=== PATIENT | male | born 1950 | race Caucasian/White ===

== ENCOUNTER → 2016-10-30 | Outpatient (CLI) | payer OTHER, MEDICARE ==
[~2016-10-30] MED LIST: ASCO1CAP3 PO; ASPEC81 PO; ASPI81TA28 PO; ATOR-24 PO; CEPH-571 PO; CEPH500C2 PO; CLB200 PO; CRANPOW PO; HYDR-3983 PO; OMEGCAP2 PO; ONDA8TAB6 PO; OXYB5TAB74 PO; OXYC7.5T62 PO; PANT40TA PO; PHEN-775 PO; RXC5 PO; TAMS0.4C38 PO; [UNRECOGNIZED DRUG - OTHER] PO; [UNRECOGNIZED DRUG - OTHER] PO
== END | disposition home or self-care (01) ==
LOC: C.CPL 15:27
PROVIDERS: ATTEND Orthopaedic Surgery Sports Medicine
DX: Z01.810 Encounter for preprocedural cardiovascular examination (principal)

== ENCOUNTER 2017-03-18 05:19 | Inpatient (IN) | payer OTHER, MEDICARE ==
[2017-02-12 14:40] VITALS: BMI 29.0
[2017-02-12 15:08] LABS: BUN/CREATININE RATIO 13.1 (10-20); CALCIUM 9.5 mg/dl (8.5-10.1); CREATININE 1.2 mg/dl (0.60-1.40); POTASSIUM 4.2 mmol/L (3.5-5.1)
--- NOTE | 2017-02-12 15:11 | PAT Medication Instructions ---
Service Date February 12, 2017. Current Home Medication List Ascorbic Acid (Vitamin C), 500 MG PO QAM Aspirin (Aspirin Ec), 81 MG PO QAM Atorvastatin (Lipitor), 40 MG PO QAM Lakeside-3 Fatty Acids (Fish Oil), 1 TAB PO QAM Pantoprazole (Protonix), 40 MG PO QAM Medication Instructions For Your Scheduled Surgery - Hold the following medications 2 weeks prior to surgery: Lakeside-3 Fatty Acids (Fish Oil), 1 TAB PO QAM - Hold the following medications the morning of surgery: Ascorbic Acid (Vitamin C), 500 MG PO QAM - Take the following medications the morning of surgery with a sip of water: Pantoprazole (Protonix), 40 MG PO QAM Atorvastatin (Lipitor), 40 MG PO QAM Aspirin (Aspirin Ec), 81 MG PO QAM If you have any questions please call us at [phone] (Palak Sosa PA-C) or [phone] or [phone]
[2017-02-12 15:28] LABS: BASO % 0.4 %; BASO ABS # 0.03 K/uL (0-0.2); COMPLETE YES; EOS % 1.6 %; HEMATOCRIT 44.9 % (42-52); IG% 0.3 %; LYMPH % 21.8 %; LYMPH ABS # 1.54 K/uL (1.2-3.4); MEAN CELL VOLUME 87.9 fL (80-100); MEAN CORPUSCULAR HEMOGLOBIN 28.6 pg (25-34); MEAN CORPUSCULAR HGB CONC 32.5 g/dl (32-36); MEAN PLATELET VOLUME 10.4 fL (7.4-10.4); MONO % 7.1 %; NEUT % 68.8 %; PLATELET COUNT 312 K/uL (130-400); RED BLOOD COUNT 5.11 M/uL (4.7-6.1); WHITE BLOOD COUNT 7.08 K/uL (4.8-10.8)
[2017-02-12 15:29] LABS: URINE APPEARANCE CLEAR (CLEAR); URINE BILIRUBIN NEG (NEG); URINE COLOR YELLOW; URINE EPITHELIAL CELL AUTO 0-5 /lpf (0-5); URINE NITRITE NEG (NEG); URINE PH 5.5 (4.5-7.5); URINE SPECIFIC GRAVITY 1.015 (1.000-1.030); UROBILINOGEN NEG (NEG)
--- NOTE | 2017-02-12 15:33 | DIAGNOSTIC IMAGING REPORT ---
TWO VIEW CHEST CLINICAL HISTORY: Preoperative examination. FINDINGS: PA and lateral chest radiographs are obtained. No prior studies are available for comparison at the time of dictation. The cardiomediastinal silhouette is unremarkable. Scattered calcified granulomas are identified. The lungs and pleural spaces are otherwise clear. There is no pneumothorax. The skeletal structures are osteopenic. Degenerative change is noted throughout the thoracic spine. There is atherosclerotic calcification of the carotid bulbs. IMPRESSION: No active disease in the chest. Electronically signed by: Barry Loomis M.D. 02/12/2017 3:32 PM Dictated Date/Time: 02/12/2017 3:31 PM
[2017-02-12 15:35] LABS: PROTHROMBIN TIME (PATIENT) 10.4 SECONDS (9.0-12.0)
[2017-02-12 15:40] LABS: MANUAL MICROSCOPIC REQUIRED? NO; REVIEW REQ? NO
[2017-02-13 07:21] LABS: ESTIMATED AVERAGE GLUCOSE 137 mg/dl; HA1C FLAG Normal (Normal)
--- NOTE | 2017-03-17 19:01 | HISTORY & PHYSICAL EXAMINATION ---
DATE OF ADMISSION: 03/18/2017 CHIEF COMPLAINT: Chronic left knee pain. HISTORY OF PRESENT ILLNESS: This is a 66-year-old male patient of Dr. Pineda'dallas complaining of chronic left knee pain, longstanding, now progressively getting worse. The patient has been diagnosed with end-stage osteoarthritis per clinical and radiographic exam. The patient has failed conservative treatment including anti-inflammatories and the use of bracing. The patient has increased pain with weightbearing activities and his pain does interfere with his activities of daily living. PAST MEDICAL HISTORY: Hypercholesterolemia, rheumatoid arthritis, acid reflux, hiatal hernia. SOCIAL HISTORY: He was a lifelong smoker, quit in 1969. He is a 6 drinks per week drinker. PAST SURGICAL HISTORY: Elbow surgery. REVIEW OF SYSTEMS: The patient complains of chronic left knee pain, otherwise denies any shortness of breath, chest pain, nausea, vomiting or other joint complaints. FAMILY HISTORY: Noncontributory. MEDICATIONS: Include pantoprazole 40 mg daily, Lipitor 40 mg daily. ALLERGIES: No known drug allergies. PHYSICAL EXAMINATION: GENERAL: Well-developed, well-nourished 66-year-old male in no acute distress. He is alert and oriented x3 and pleasant. HEENT: Normocephalic, atraumatic. Extraocular motions are intact. Pupils equal and reactive to light. HEART: Regular rate and rhythm. No murmurs are appreciated. LUNGS: Clear. ABDOMEN: Soft and nontender, bowel sounds are present. EXTREMITIES: Left knee reveals a range of motion of 0-130. He has a mild effusion. He does have crepitation with passive range of motion. He has medial joint line tenderness with a valgus deformity. 5/5 strength. NEUROLOGIC: Neurovascularly, he is intact in his left lower extremity. DIAGNOSES: Left knee end-stage osteoarthritis, hypercholesterolemia, rheumatoid arthritis, osteoarthritis, acid reflux, hiatal hernia. PLAN: The patient was advised of his diagnosis. Indications, risks, benefits and post op course have all been reviewed. The patient wished to proceed with a left total knee arthroplasty. Necessary consent forms, preoperative testing and clearances will be obtained. [facility]
[2017-03-18] VITALS (9 sets, daily range): BP systolic 124–160; BP diastolic 71–105; PULSE 75–91; TEMP 36.5–37; O2SAT 94–98; Ht 175.3 cm; Wt 91.4 kg
[~2017-03-18] VITALS: Ht 175.3 cm; Wt 91.4 kg
[~2017-03-18 05:19] MED LIST changes: -ASPEC81 PO; -CEPH-571 PO; -CEPH500C2 PO; -CLB200 PO; -CRANPOW PO; -HYDR-3983 PO; -ONDA8TAB6 PO; -OXYB5TAB74 PO; -OXYC7.5T62 PO; -PHEN-775 PO; -RXC5 PO; -TAMS0.4C38 PO; -[UNRECOGNIZED DRUG - OTHER] PO; -[UNRECOGNIZED DRUG - OTHER] PO
[2017-03-18] MEDS ORDERED: METOCLOPRAMIDE HCL 10 MG TAB PO SCH (06:00)
[2017-03-18] MEDS ORDERED: GABAPENTIN 300 MG CAP PO SCH (06:00)
[2017-03-18] MEDS ORDERED: CeleBREX 200 MG CAP PO SCH (06:00)
[2017-03-18] MEDS ORDERED: LACTATED RINGER'S 1000ML IV SCH (06:00)
[2017-03-18] MEDS ORDERED: LACTATED RINGER'S 1000ML 500 ML IV ONE (06:00)
[2017-03-18] MEDS ORDERED: ROPIVACAINE 5MG/ML 30 ML 150 MG, BUPIVACAINE/EPINEPHR 0.5% MPF 30 ML, KETOROLAC TROMETH... INFIL SCH ×7 (06:00)
[2017-03-18] MEDS ORDERED: CEFAZOLIN 2000 MG/60 ML D5W 60 ML IV SCH (06:00)
[2017-03-18] MEDS ORDERED: ACETAMINOPHEN 500 MG TAB PO SCH (06:00)
[2017-03-18] MEDS ORDERED: DEXAMETHASONE 4 MG TAB PO SCH (06:00)
[2017-03-18] MEDS ORDERED: LACTATED RINGER'S 1000ML 1,000 ML IV SCH (06:00)
[2017-03-18] MEDS ORDERED: FAMOTIDINE 20 MG TAB PO SCH (06:00)
[2017-03-18] MEDS: TRANEXAMIC ACID INJ 1,000 MG in SODIUM CHLORIDE 0.9% 100ML 100 ML IV SCH ×2 (06:19→06:30)
[2017-03-18] MEDS ORDERED: BUPIVACAINE 0.5 % 5 MG/1 ML PF 10ML VIAL ONE (06:28)
[2017-03-18] MEDS ORDERED: BUPIVACAINE 0.25% 30 ML VIAL ONE (06:28)
[2017-03-18] MEDS ORDERED: MIDAZOLAM HCL 1 MG/ML 2ML VIAL ONE (06:48)
[2017-03-18] MEDS ORDERED: LIDOCAINE HCL 2% 2 ML VIAL (20MG/ML) ONE (06:48)
[2017-03-18] MEDS ORDERED: PROPOFOL IV EMULSION 10 MG/ML 20 ML VIAL IV ONE (06:48)
[2017-03-18] MEDS ORDERED: ORTHO JOINT ANESTHETIC ONE (07:06)
[2017-03-18] MEDS ORDERED: POVIDONE-IODINE OP SOLN 30 ML BTL ONE (07:06)
[2017-03-18] MEDS ORDERED: BACITRACIN 50000 UNIT VIAL ONE (07:06)
--- NOTE | 2017-03-18 07:15 | History & Physical Bridge Note ---
H&P Re-Evaluation Bridge Note: I have examined the patient, reviewed the History & Physical and in the interval since the performance of the History & Physical I have noted the following changes of clinical significance: No changes noted
[2017-03-18] MEDS ORDERED: ATROPINE SULFATE 0.1 MG/ML 5ML SYR IV PRN (08:30)
[2017-03-18] MEDS ORDERED: HYDROmorphone INJ 1 MG/ML SYR IV PRN (08:30)
[2017-03-18] MEDS ORDERED: FENTANYL CITRATE INJ 50 MCG/1 ML 2 ML VIAL IV PRN (08:30)
[2017-03-18] MEDS ORDERED: ONDANSETRON INJ 2 MG/ML 2 ML VIAL IV PRN ×2 (08:30→09:30)
[2017-03-18] MEDS ORDERED: MEPERIDINE HCL 25 MG/ML CARP IV PRN (08:30)
[2017-03-18] MEDS ORDERED: LABETALOL HCL IV 5 MG/ML 20ML IV PRN (08:30)
[2017-03-18] MEDS ORDERED: EpHEDrine SULFATE INJ 50 MG/ML AMP IV PRN (08:30)
--- NOTE | 2017-03-18 09:10 | [facility] Operative Report ---
Operative Report Operative Date Mar 18, 2017. Pre-Operative Diagnosis Left knee end stage osteoarthritis Post-Operative Diagnosis same Procedure(s) Performed left total knee replacement Surgeon Dr. Pineda Electronic Funds Transfer Coordinator Surgeon(s) Dontrell Hatch PA-C Estimated Blood Loss 10cc Findings end stage djd oa chronic acl tear varus grade 4 medial Specimens A. Left knee bone and tissue Drains 2 hemovac Anesthesia spinal regional and orhtomix Complication(s) None Disposition Recovery Room / PACU Indications end stage djd oa I attest to the content of the Intraoperative Record and any orders documented therein. Any exceptions are noted below.
[2017-03-18] MEDS ORDERED: BISACODYL 10 MG SUPP PR PRN (09:30)
[2017-03-18] MEDS ORDERED: ZOLPIDEM TARTRATE 5 MG TAB PO PRN (09:30)
[2017-03-18] MEDS ORDERED: SOD PHOSPHATE/SOD BIPHOSPHATE ENEMA 132 ML BTL PR PRN (09:30)
[2017-03-18] MEDS ORDERED: TRAMADOL HCL 50 MG TAB PO PRN (09:30)
[2017-03-18] MEDS ORDERED: MoRPHine SULFATE 2 MG/ML CARP IV PRN (09:30)
[2017-03-18] MEDS ORDERED: MAGNESIUM HYDROXIDE SUSP 30 ML UDC PO PRN (09:30)
[2017-03-18] MEDS ORDERED: MoRPHine SULFATE 4 MG/ML 1 ML CARP\\VIAL IV PRN (10:00)
--- NOTE | 2017-03-18 10:11 | DIAGNOSTIC IMAGING REPORT ---
TWO VIEWS LEFT KNEE CLINICAL HISTORY: Postoperative examination. FINDINGS: AP and crosstable lateral portable views of the left knee are obtained. A left knee arthroplasty is in near anatomic alignment. There has been undersurface remodeling of the patella. No acute fracture is seen. There are expected postoperative changes around the knee including skin clips, a surgical drain, soft tissue edema, and subcutaneous gas. IMPRESSION: Expected postoperative changes status post left knee arthroplasty. No acute fracture is seen. Electronically signed by: Barry Loomis M.D. 03/18/2017 10:09 AM Dictated Date/Time: 03/18/2017 10:09 AM
--- NOTE | 2017-03-18 10:42 | Anesthesiology Progress Note ---
Anesthesia Post Op Note Date & Time Mar 18, 2017 at 10:41 Vital Signs Pain Intensity: 0 Vital Signs Past 12 Hours Date Time Temp Pulse Resp B/P (MAP) Pulse Ox O2 Delivery O2 Flow Rate FiO2 03/18/17 10:20 77 13 128/77 96 Nasal Cannula 2 03/18/17 10:10 37.4 78 16 128/81 97 Nasal Cannula 2 03/18/17 10:00 82 12 116/78 97 Nasal Cannula 2 03/18/17 09:50 74 12 117/77 94 Nasal Cannula 2 03/18/17 09:40 81 9 131/79 92 Nasal Cannula 2 03/18/17 09:30 36.0 80 15 122/77 98 Nasal Cannula 2 03/18/17 05:38 36.9 79 18 154/105 95 Room Air Notes Mental Status: alert / awake / arousable, participated in evaluation Pt Amnestic to Procedure: Yes Nausea / Vomiting: adequately controlled Pain: adequately controlled Airway Patency, RR, SpO2: stable & adequate BP & HR: stable & adequate Hydration State: stable & adequate Neuraxial Anesthesia: was administered, sensory block is resolving Anesthetic Complications: no major complications apparent
--- NOTE | 2017-03-18 10:51 | OPERATIVE REPORT ---
DATE OF OPERATION: 03/18/2017 INDICATION FOR PROCEDURE: The patient is a 66-year-old male with chronic progressive osteoarthritis in his left knee primarily. He also has osteoarthritis in his right knee, but not as severe as the left. He failed conservative management. His x-rays demonstrate he is [id number] medial compartment with some bone loss and significant varus alignment to his knee. PREOPERATIVE DIAGNOSIS: End-stage osteoarthritis, left knee. POSTOPERATIVE DIAGNOSIS: Same. PROCEDURE: Left total knee arthroplasty. SURGEON: Dr. Pineda. METALWORKER: RENY Maynard ANESTHESIA: Spinal, regional block and Orthomix. OPERATIVE PROCEDURE: The patient taken to the operating room after a spinal anesthetic placed and a regional block placed to his left lower extremity. A pneumatic tourniquet was placed on left upper thigh. His knee exam demonstrated he had no endpoint with Luisa exam. He had some pseudolaxity medially. He had a marked varus alignment to his knee about 20 degrees of varus. He had good extension and flexion. Left lower extremity was prepped and draped in a sterile fashion. Leg was elevated, exsanguinated with an Esmarch bandage. Pneumatic tourniquet was raised to 300 mmHg. Anterior incision was made across the left knee. Skin was incised longitudinally through the skin and into the subcutaneous tissues and subcutaneous flaps were elevated. An incision was made into the medial retinaculum and extended up into the mid third of the quadriceps tendon and extended down to the medial tibial tubercle. Intraarticular findings demonstrate tricompartmental DJD, tricompartmental osteophytes. He had grade 4 wear on the lateral femoral condyle, medial femoral condyle, some bone loss medially chronic ACL tear. I used the [employer] Journey 2.0, total knee arthroplasty system using Visionaire MRI templating, his femur was sized for a 6 and tibia for a 4. To expose the knee, I excised the infrapatellar fat pad, I excised some of the fat pad over the anterior femur for placement of the component in that area. I released the lateral synovial bands. The patient had a fairly large plica that was resected along with some of the synovium around the patella. The femur was exposed. The PCL was released and later excised and then medial meniscus remnants and the lateral meniscus were excised. The custom femoral cutting block was pinned in position and the distal femoral cut was made. Then the 5-in-1 cutting block for the size 6 femur was used. The anterior, posterior and chamfer cuts were made. Then the knee was extended and a subperiosteal peel lateral release was performed around the patella and the patella width was measured and width was reproduced using a freehand cut technique and a 38 patellar component. The drill holes were made into the patella for the component and the excess lateral facet was beveled off to prevent any impingement. Then the tibia was subluxed and the tibial cutting block was pinned in position and the proximal tibial cut was made. We did more releases medially and posteromedially to balance the ligaments, but there was still slight asymmetric flexion, extension gap on the medial side. At this time, the tibia was exposed and we placed the tibial trial in position, externally rotated in line with the tibial tubercle, pinned in position, the punch for the stem was used. Then, the 6 femoral trial was inserted, centered and the notch cutting devices were used. The collet was placed and then we used the lamina electric hoist operator to put tension on the MCL and did a minor pie crusting in the MCL to get the appropriate ligamentous balance and then we placed a 12 poly insert in position and the ligaments were balanced in full range of motion and the patella tracked centrally. The trials were removed. The anesthetic cocktail was injected per protocol. The knee was copiously irrigated with pulsatile lavage antibiotic solution and bacitracin. The final components were then cemented with Simplex G cement. Final components were the 6 Oxinium posterior stabilized Godwin [employer] Nephew Journey 2.0 left femoral component, the 4 tibial baseplate, the 12 mm posterior stabilized high flex poly insert and the 38 patella. All excess cement was cleared and the Betadine soak was used while the cement cured. The knee was then copiously irrigated with pulsatile lavage antibiotic solution with bacitracin. The 2 drains were brought out laterally connected to a Hemovac. The quadriceps tendon and medial retinaculum were closed with interrupted [id number] #1 Vicryl sutures. Subcutaneous tissues were closed with interrupted 2-0 Vicryl sutures, skin closed with adiel. Sterile dressing was applied using Silverlon dressing and the tourniquet was let down. The patient had good capillary refill to the extremity and tolerated the procedure well. RENY Maynard was my sales assistant entertainment and media. He assisted in the surgery including assisting in patient positioning, prepping, draping, soft tissue retraction, leg positioning, and instrument management during the reconstruction and he performed the fascial, subcutaneous and skin closure and placed postoperative dressings and will participate in postop care of the patient. I attest to the content of the Intraoperative Record and any orders documented therein. Any exception s are noted below.
[2017-03-18] MEDS ORDERED: D5W AND 1/2NSS + 20MEQ KCL 1,000 ML IV SCH (11:30)
[2017-03-18] MEDS ORDERED: GLUCOSE 40% GEL 15 GM TUBE PO PRN (11:45)
[2017-03-18] MEDS ORDERED: GLUCAGON FOR INJ 1 MG VIAL SQ PRN (11:45)
[2017-03-18] MEDS ORDERED: GLUCOSE 10 TABS/TUBE PO PRN (11:45)
[2017-03-18] MEDS ORDERED: DEXTROSE 50% 50 ML SYR IV PRN (11:45)
--- NOTE | 2017-03-18 11:48 | Medical Consult ---
Consultation Date of Consultation: Mar 18, 2017. Attending Physician: Joel Pineda M.D. Reason for Consultation: Medical management History of Present Illness This is a 66 y/o male with a history of HLD and Hayes's esophagus who presents s/p left TKA with Dr. Pineda on 03/18 for medical management. Patient reports feeling well postoperatively. He states that he is still numb from his thighs down but is regaining movement in his lower extremities. He denies any pain currently. The patient has not eaten, urinated, passed gas, or had a bowel movement yet postoperatively. The patient denies fevers, chills, sweats, chest pain, palpitations, claudication, cough, wheezing, shortness of breath, nausea, vomiting, abdominal pain, dysuria, hematuria, urinary retention, paralysis, weakness. 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) Allergies Coded Allergies: No Known Allergies (Verified , 03/18/17) Current Inpatient Medications Current Inpatient Medications Medications (Trade) Dose Ordered Sig/David Route Start Time Stop Time Status Last Admin Dose Admin Lactated Ringer's 1,000 ml @ 60 mls/hr [id number] IV 03/18/17 06:00 03/18/17 22:39 Cefazolin Sodium 60 ml @ 100 mls/hr PREOP IV 03/18/17 06:00 03/18/17 18:00 03/18/17 07:31 100 MLS/HR Acetaminophen (Tylenol Tab) 1,000 mg PREOP PO 03/18/17 06:00 03/18/17 18:00 03/18/17 06:19 1,000 MG Celecoxib (CeleBREX CAP) 200 mg PREOP PO 03/18/17 06:00 03/18/17 18:00 03/18/17 06:19 200 MG Dexamethasone (Decadron Tab) 8 mg PREOP PO 03/18/17 06:00 03/18/17 18:00 03/18/17 06:20 8 MG Famotidine (Pepcid Tab) 20 mg PREOP PO 03/18/17 06:00 03/18/17 18:00 03/18/17 06:19 20 MG Gabapentin (Neurontin Cap) 300 mg PREOP PO 03/18/17 06:00 03/18/17 18:00 03/18/17 06:20 300 MG Metoclopramide HCl (Reglan Tab) 10 mg PREOP PO 03/18/17 06:00 03/18/17 18:00 03/18/17 06:20 10 MG Tranexamic Acid 1000 mg/Sodium Chloride 110 ml @ 660 mls/hr TODAY@06,0630 IV 03/18/17 06:00 03/18/17 18:00 03/18/17 06:19 660 MLS/HR Lactated Ringer's 1,000 ml @ 15 mls/hr Q24H IV 03/18/17 06:00 03/19/17 05:59 03/18/17 06:20 15 MLS/HR Fentanyl Citrate (Fentanyl Inj) 50 mcg Q5M PRN IV 03/18/17 08:30 03/18/17 14:30 Hydromorphone HCl (Dilaudid Inj) 0.5 mg Q5M PRN IV 03/18/17 08:30 03/18/17 14:30 Meperidine HCl (Demerol Inj) 25 mg Q5M PRN IV 03/18/17 08:30 03/18/17 14:30 Ondansetron HCl (Zofran Inj) 4 mg ONE PRN IV 03/18/17 08:30 03/18/17 14:30 Labetalol HCl (Normodyne IV) 5 mg Q5M PRN IV 03/18/17 08:30 03/18/17 14:30 Ephedrine Sulfate (EpHEDrine SULFATE INJ) 5 mg Q5M PRN IV 03/18/17 08:30 03/18/17 14:30 Atropine Sulfate (Atropine Sulfate 0.1MG/Ml Inj) 0.5 mg Q1M PRN IV 03/18/17 08:30 03/18/17 14:30 Atorvastatin Calcium (Lipitor Tab) 40 mg QAM PO 03/19/17 09:00 04/18/17 08:59 Ascorbic Acid (Vitamin C Tab) 500 mg QAM PO 03/19/17 09:00 04/18/17 08:59 Potassium Chloride/Dextrose/ Sod Cl 1,000 ml @ 100 mls/hr Q10H IV 03/18/17 11:30 03/19/17 11:29 Cefazolin Sodium 2000 mg/Dextrose 60 ml @ 100 mls/hr Q8H IV 03/18/17 16:00 03/19/17 00:35 Celecoxib (CeleBREX CAP) 200 mg BID PO 03/18/17 21:00 04/17/17 20:59 Oxycodone HCl (Roxicodone Immediate Rel Tab) 1 TABLET FOR PAIN RATING... Q4H PRN PO 03/18/17 09:30 04/01/17 09:29 Morphine Sulfate (MoRPHine SULFATE INJ) 2 mg Q2H PRN IV 03/18/17 09:30 04/01/17 09:29 Acetaminophen (Tylenol Tab) 1,000 mg Q8H PO 03/18/17 22:00 04/17/17 21:59 Magnesium Hydroxide (Milk Of Magnesia Susp) 30 ml Q6H PRN PO 03/18/17 09:30 04/17/17 09:29 Bisacodyl (Dulcolax Supp) 10 mg DAILY PRN ME 03/18/17 09:30 04/17/17 09:29 Sodium Biphosphate/ Sodium Phosphate (Fleet Enema) 132 ml DAILY PRN ME 03/18/17 09:30 04/17/17 09:29 Docusate Sodium (coLACE CAP) 100 mg BID PO 03/18/17 21:00 04/17/17 20:59 Diphenhydramine HCl (Benadryl Cap) 25 mg Q8H PRN PO 03/18/17 09:30 04/17/17 09:29 Zolpidem Tartrate (Ambien Tab) 5 mg HSZ PRN PO 03/18/17 09:30 04/17/17 09:29 Multivitamins (Multivitamin Tab) 1 tab QAM PO 03/19/17 09:00 04/18/17 08:59 Ondansetron HCl (Zofran Inj) 4 mg Q6H PRN IV 03/18/17 09:30 04/17/17 09:29 Pantoprazole Sodium (Protonix Tab) 40 mg QAM PO 03/19/17 09:00 04/18/17 08:59 Tramadol HCl (Ultram Tab) 1 tablet for pain rating... Q4H PRN PO 03/18/17 09:30 04/17/17 09:29 Aspirin (Ecotrin Tab) 81 mg BID PO 03/18/17 21:00 04/17/17 20:59 Morphine Sulfate (MoRPHine SULFATE INJ) 4 mg Q2H PRN IV 03/18/17 10:00 04/01/17 09:59 Review of Systems See HPI for pertinent positives and negatives. All other systems reviewed and negative. Physical Exam Date Time Temp Pulse Resp B/P (MAP) Pulse Ox O2 Delivery O2 Flow Rate FiO2 03/18/17 11:35 81 16 155/81 (105) 96 Nasal Cannula 2.0 03/18/17 11:00 80 16 160/81 (107) 98 Nasal Cannula 2.0 03/18/17 10:30 37.0 79 18 137/73 (94) 95 Nasal Cannula 2.0 03/18/17 10:20 77 13 128/77 96 Nasal Cannula 2 03/18/17 10:10 37.4 78 16 128/81 97 Nasal Cannula 2 03/18/17 10:00 82 12 116/78 97 Nasal Cannula 2 03/18/17 09:50 74 12 117/77 94 Nasal Cannula 2 03/18/17 09:40 81 9 131/79 92 Nasal Cannula 2 03/18/17 09:30 36.0 80 15 122/77 98 Nasal Cannula 2 03/18/17 05:38 36.9 79 18 154/105 95 Room Air General appearance: Well-developed, well-nourished, no apparent distress Head: +Head bobbing. Pt states he has had this "involuntary twitch" since he was a teenager. Normocephalic, atraumatic Eyes: Normal inspection, PERRL, EOMI ENT: Normal ENT inspection, hearing grossly normal, pharynx normal Neck: Supple, no JVD, trachea midline Respiratory/Chest: Lungs clear to auscultation, normal breath sounds, no respiratory distress Cardiovascular: Regular rate & rhythm, no gallop, no murmur Abdomen/GI: Normal bowel sounds, non-tender, soft Extremities/Musculoskeletal: +LLE wrapped in janet bandage. Normal inspection, no calf tenderness, no pedal edema Neurological/Psych: Alert, normal mood/affect, oriented x 3 Skin: Normal color, warm/dry, no rash Assessment & Plan 66 y/o male with a history of HLD and Hayes's esophagus who presents s/p left TKA with Dr. Pineda on 03/18 for medical management. -Pain management, DVT prophylaxis, and PT/OT as per primary team -POD #0 Pre-diabetes--pre op labs on 02/12/17 show HgbA1c of 6.4 -Insulin sliding scale -Check BSGs q ac and qhs -Discussed with patient lifestyle modifications for after discharge and to follow up on this with his PCP HLD -Continue atorvastatin 40 mg PO qd Hayes's esophagus -Continue pantoprazole 40 mg PO qd Code Status -Level I, FULL RESUSCITATION STATUS Thank you for this consultation. We will continue to follow. Additional Copies To Mary Lou Colon D.O. Assessment and Plan Attending Addendum: I have physically seen and examined this patient, directed their medical care, supervised the Physician Director Of Diagnostic Imaging's activity, and agree with the H&P as noted above, with the following changes: NONE.
[2017-03-18] MEDS: INSULIN ASPART 100 UNITS/ML 3 ML PEN SC SCH ×3 (12:00→21:00)
[2017-03-18 12:39] LABS: BASO % 0.1 %; BASO ABS # 0.01 K/uL (0-0.2); COMPLETE YES; EOS % 0.1 %; HEMATOCRIT 41.3 % (42-52); IG% 0.1 %; LYMPH % 5.7 %; LYMPH ABS # 0.49 K/uL (1.2-3.4); MEAN CELL VOLUME 87.9 fL (80-100); MEAN CORPUSCULAR HEMOGLOBIN 30.2 pg (25-34); MEAN CORPUSCULAR HGB CONC 34.4 g/dl (32-36); MEAN PLATELET VOLUME 10.9 fL (7.4-10.4); MONO % 0.6 %; NEUT % 93.4 %; PLATELET COUNT 256 K/uL (130-400); WHITE BLOOD COUNT 8.54 K/uL (4.8-10.8)
[2017-03-18 13:05] LABS: BUN/CREATININE RATIO 14.1 (10-20); CALCIUM 8.5 mg/dl (8.5-10.1); CREATININE 1.1 mg/dl (0.60-1.40); POTASSIUM 4.5 mmol/L (3.5-5.1)
[2017-03-18] MEDS: CEFAZOLIN IV 2,000 MG in DEXTROSE 5% 50ML 50 ML IV SCH ×2 (16:08→23:36)
[2017-03-18] MEDS: SODIUM CHLORIDE 0.9% 1000ML 1,000 ML IV SCH (16:08)
[2017-03-18] MEDS: DOCUSATE SODIUM 100 MG CAP PO SCH (21:00)
[2017-03-18] MEDS: CeleBREX 200 MG CAP PO SCH (21:00)
[2017-03-18] MEDS: ASPIRIN 81 MG ECTAB PO SCH (21:00)
[2017-03-18] MEDS: ACETAMINOPHEN 500 MG TAB PO SCH (21:01)
[2017-03-19] MEDS: SODIUM CHLORIDE 0.9% 1000ML 1,000 ML IV SCH (01:17)
[2017-03-19 03:36] VITALS: BP 129/72; PULSE 79; TEMP 36.7; O2SAT 97
[2017-03-19 05:36] LABS: HEMATOCRIT 34.7 % (42-52); MEAN CELL VOLUME 87.2 fL (80-100); MEAN CORPUSCULAR HEMOGLOBIN 28.9 pg (25-34); MEAN CORPUSCULAR HGB CONC 33.1 g/dl (32-36); MEAN PLATELET VOLUME 10.6 fL (7.4-10.4); PLATELET COUNT 246 K/uL (130-400); RED BLOOD COUNT 3.98 M/uL (4.7-6.1); WHITE BLOOD COUNT 15.46 K/uL (4.8-10.8)
[2017-03-19 06:09] LABS: BUN/CREATININE RATIO 18.1 (10-20); CALCIUM 8.1 mg/dl (8.5-10.1); CREATININE 1.1 mg/dl (0.60-1.40); POTASSIUM 4.7 mmol/L (3.5-5.1)
[2017-03-19] MEDS: ACETAMINOPHEN 500 MG TAB PO SCH ×3 (06:10→21:28)
[2017-03-19 07:16] VITALS: BP 118/68; PULSE 68; TEMP 36.6; O2SAT 96
--- NOTE | 2017-03-19 07:58 | Hospitalist Progress Note ---
Hospitalist Progress Note Date of Service Mar 19, 2017. (Jacqueline Lopez PA-C) Subjective Pt evaluation today including: conversation w/ patient, physical exam, chart review, lab review, review of studies Pain: None PO Intake: Good Voiding: no voiding problems The patient was seen and examined this morning. Pt reports he feels "really good , great actually" today. He has no pain currently, took a pain med about 1.5 hrs ago. He hasn't worked with PT yet, but plans to later today. He ate breakfast without difficulty, no nausea, vomiting, and is passing gas. No BM yet. No numbness or tingling into the right LE. Denies any other acute complaints. Discussion was held regarding taking tylenol around the clock for a few days to keep ahead of his pain, and only using oxycodone for breakthrough pain. We also discussed diet and exercise for elevated HgbA1C and prediabetes. Pt does have family hx of DM, and reassures me he will start eating much healthier and that this wont be any trouble. All his questions and concerns were answered. Additional Comments: ROS: 6 point ROS reviewed and otherwise negative. (Jacqueline Lopez, JALEEL) Objective Vital Signs Date Time Temp Pulse Resp B/P (MAP) Pulse Ox O2 Delivery O2 Flow Rate FiO2 03/19/17 07:16 36.6 68 18 118/68 (85) 96 Room Air 03/19/17 03:36 36.7 79 15 129/72 (91) 97 Nasal Cannula 2.0 03/18/17 23:00 36.5 89 16 140/71 (94) 97 Nasal Cannula 2.0 03/18/17 20:00 Room Air 03/18/17 19:48 36.8 79 16 124/76 (92) 98 Nasal Cannula 2.0 03/18/17 16:00 Nasal Cannula 2.0 03/18/17 15:04 36.7 85 16 143/79 (100) 97 Nasal Cannula 2.0 03/18/17 13:30 91 16 154/81 (105) 94 Nasal Cannula 2.0 03/18/17 12:30 75 16 158/80 (106) 98 Nasal Cannula 2.0 03/18/17 11:35 81 16 155/81 (105) 96 Nasal Cannula 2.0 03/18/17 11:00 80 16 160/81 (107) 98 Nasal Cannula 2.0 03/18/17 10:30 95 Nasal Cannula 2.0 03/18/17 10:30 95 Nasal Cannula 2.0 03/18/17 10:30 37.0 79 18 137/73 (94) 95 Nasal Cannula 2.0 03/18/17 10:20 77 13 128/77 96 Nasal Cannula 2 03/18/17 10:10 37.4 78 16 128/81 97 Nasal Cannula 2 03/18/17 10:00 82 12 116/78 97 Nasal Cannula 2 03/18/17 09:50 74 12 117/77 94 Nasal Cannula 2 03/18/17 09:40 81 9 131/79 92 Nasal Cannula 2 03/18/17 09:30 36.0 80 15 122/77 98 Nasal Cannula 2 (Jacqueline Lopez PA-C) Physical Exam General Appearance: WD/WN, no apparent distress Eyes: PERRL, EOMI ENT: hearing grossly normal, pharynx normal Neck: supple, no JVD Respiratory/Chest: chest non-tender, lungs clear, no respiratory distress, no accessory muscle use Cardiovascular: regular rate, rhythm, no JVD, + systolic murmur (grade II/V ) Abdomen: non tender, soft, no organomegaly Extremities: non-tender, no pedal edema, no calf tenderness Neurologic/Psychiatric: 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 II-XII nml as tested, no motor/sensory deficits, alert, oriented x 3 Skin: normal color, warm/dry (Jacqueline Lopez PA-C) Laboratory Results Last 24 Hours Test 03/18/17 12:02 03/18/17 12:25 03/18/17 17:08 03/18/17 20:26 Bedside Glucose 158 mg/dl 152 mg/dl 146 mg/dl White Blood Count 8.54 K/uL Red Blood Count 4.70 M/uL Hemoglobin 14.2 g/dL Hematocrit 41.3 % Mean Corpuscular Volume 87.9 fL Mean Corpuscular Hemoglobin 30.2 pg Mean Corpuscular Hemoglobin Concent 34.4 g/dl Platelet Count 256 K/uL Mean Platelet Volume 10.9 fL Neutrophils (%) (Auto) 93.4 % Lymphocytes (%) (Auto) 5.7 % Monocytes (%) (Auto) 0.6 % Eosinophils (%) (Auto) 0.1 % Basophils (%) (Auto) 0.1 % Neutrophils # (Auto) 7.97 K/uL Lymphocytes # (Auto) 0.49 K/uL Monocytes # (Auto) 0.05 K/uL Eosinophils # (Auto) 0.01 K/uL Basophils # (Auto) 0.01 K/uL RDW Standard Deviation 45.9 fL RDW Coefficient of Variation 14.3 % Immature Granulocyte % (Auto) 0.1 % Immature Granulocyte # (Auto) 0.01 K/uL Sodium Level 141 mmol/L Potassium Level 4.5 mmol/L Chloride Level 108 mmol/L Carbon Dioxide Level 25 mmol/L Anion Gap 8.0 mmol/L Blood Urea Nitrogen 16 mg/dl Creatinine 1.10 mg/dl Est Creatinine Clear Calc Drug Dose 71.8 ml/min Estimated GFR () 79.5 Estimated GFR (Non- 68.6 BUN/Creatinine Ratio 14.1 Random Glucose 155 mg/dl Calcium Level 8.5 mg/dl Test 03/19/17 04:55 White Blood Count 15.46 K/uL Red Blood Count 3.98 M/uL Hemoglobin 11.5 g/dL Hematocrit 34.7 % Mean Corpuscular Volume 87.2 fL Mean Corpuscular Hemoglobin 28.9 pg Mean Corpuscular Hemoglobin Concent 33.1 g/dl RDW Standard Deviation 45.4 fL RDW Coefficient of Variation 14.1 % Platelet Count 246 K/uL Mean Platelet Volume 10.6 fL Sodium Level 143 mmol/L Potassium Level 4.7 mmol/L Chloride Level 109 mmol/L Carbon Dioxide Level 26 mmol/L Anion Gap 8.0 mmol/L Blood Urea Nitrogen 20 mg/dl Creatinine 1.10 mg/dl Est Creatinine Clear Calc Drug Dose 71.8 ml/min Estimated GFR () 79.5 Estimated GFR (Non- 68.6 BUN/Creatinine Ratio 18.1 Random Glucose 119 mg/dl Calcium Level 8.1 mg/dl (Jacqueline Lopez PA-C) Assessment and Plan 66 y/o male with a history of HLD and Hayes's esophagus who presents s/p left TKA with Dr. Pineda on 03/18 for medical management. - Pain management, DVT prophylaxis, and PT/OT as per primary team - POD #1 - Pain well controlled Pre-diabetes--pre op labs on 02/12/17 show HgbA1c of 6.4 -Insulin sliding scale with accuchecks achs -Discussion held at beside regarding diet and exercise, pt plans to do this. Follow up on this with his PCP and have repeat Hbg A1C in 3 months. HLD -Continue atorvastatin 40 mg PO qd Hayes's esophagus -Continue pantoprazole 40 mg PO qd Code Status: FULL CODE Disposition: From home, outpatient PT planned, discharge tomorrow per primary service (Jacqueline Lopez, JALEEL) Reviewed: Pt Seen/Exam by Me (Inna Delgado DO) History Pt is doing well post-op. Pain is manageable. No SOB/chest pain. Tolerating diet without issue. Agree with HPI/ROS as noted. (Inna Delgado DO) General Appearance: WD/WN, no apparent distress Respiratory: normal breath sounds, no respiratory distress Cardiovascular: normal peripheral pulses, regular rate, rhythm Gastrointestinal: non tender, soft Extremities: non-tender, no pedal edema Neurologic/Psychiatric: alert, normal mood/affect Skin Characteristics: normal color, warm/dry (Inna Delgado DO) Assessment/Plan Agree with plan as outlined above Doing well s/p TKA pre-DM, monitor Hb stable (Inna Delgado DO)
[2017-03-19] MEDS: INSULIN ASPART 100 UNITS/ML 3 ML PEN SC SCH ×4 (08:00→21:00)
[2017-03-19] MEDS: ATORVASTATIN 20 MG TAB PO SCH (08:40)
[2017-03-19] MEDS: DOCUSATE SODIUM 100 MG CAP PO SCH ×2 (08:40→21:00)
[2017-03-19] MEDS: ASPIRIN 81 MG ECTAB PO SCH ×2 (08:40→21:00)
[2017-03-19] MEDS: PANTOprazole SOD 40 MG TAB PO SCH (08:40)
[2017-03-19] MEDS: CeleBREX 200 MG CAP PO SCH ×2 (08:40→21:01)
[2017-03-19] MEDS: MULTIVITAMIN TAB PO SCH (08:40)
[2017-03-19] MEDS: ASCORBIC ACID 500 MG TAB PO SCH (08:40)
[2017-03-19] MEDS: OXYCODONE HCL IR 5 MG TAB (IMMEDIATE RELEASE) PO PRN ×3 (08:41→23:22)
--- NOTE | 2017-03-19 08:53 | Orthopedic Progress Note ---
Orthopedic Progress Note Date of Service Mar 19, 2017. Subjective Post OP Day: 1 Reports: pain controlled w PO medications, Denies: feeling well, complaints, chest pain, SOB, nausea / vomiting, light headedness, calf pain Objective calves soft nontender, N/V intact, capillary refill less than 2 sec., dressing C /D/I, A&O x3, toes mobile Date Time Temp Pulse Resp B/P (MAP) Pulse Ox O2 Delivery O2 Flow Rate FiO2 03/19/17 08:30 Room Air 03/19/17 07:16 36.6 68 18 118/68 (85) 96 Room Air 03/19/17 03:36 36.7 79 15 129/72 (91) 97 Nasal Cannula 2.0 03/18/17 23:00 36.5 89 16 140/71 (94) 97 Nasal Cannula 2.0 03/18/17 20:00 Room Air 03/18/17 19:48 36.8 79 16 124/76 (92) 98 Nasal Cannula 2.0 03/18/17 16:00 Nasal Cannula 2.0 03/18/17 15:04 36.7 85 16 143/79 (100) 97 Nasal Cannula 2.0 03/18/17 13:30 91 16 154/81 (105) 94 Nasal Cannula 2.0 03/18/17 12:30 75 16 158/80 (106) 98 Nasal Cannula 2.0 03/18/17 11:35 81 16 155/81 (105) 96 Nasal Cannula 2.0 03/18/17 11:00 80 16 160/81 (107) 98 Nasal Cannula 2.0 03/18/17 10:30 95 Nasal Cannula 2.0 03/18/17 10:30 95 Nasal Cannula 2.0 03/18/17 10:30 37.0 79 18 137/73 (94) 95 Nasal Cannula 2.0 03/18/17 10:20 77 13 128/77 96 Nasal Cannula 2 03/18/17 10:10 37.4 78 16 128/81 97 Nasal Cannula 2 03/18/17 10:00 82 12 116/78 97 Nasal Cannula 2 03/18/17 09:50 74 12 117/77 94 Nasal Cannula 2 03/18/17 09:40 81 9 131/79 92 Nasal Cannula 2 03/18/17 09:30 36.0 80 15 122/77 98 Nasal Cannula 2 Laboratory Results 24 Hours: Test 03/18/17 12:25 03/19/17 04:55 White Blood Count 8.54 K/uL Red Blood Count 4.70 M/uL Hemoglobin 14.2 g/dL 11.5 g/dL Hematocrit 41.3 % 34.7 % Mean Corpuscular Volume 87.9 fL Mean Corpuscular Hemoglobin 30.2 pg Mean Corpuscular Hemoglobin Concent 34.4 g/dl Platelet Count 256 K/uL Mean Platelet Volume 10.9 fL Neutrophils (%) (Auto) 93.4 % Lymphocytes (%) (Auto) 5.7 % Monocytes (%) (Auto) 0.6 % Eosinophils (%) (Auto) 0.1 % Basophils (%) (Auto) 0.1 % Neutrophils # (Auto) 7.97 K/uL Lymphocytes # (Auto) 0.49 K/uL Monocytes # (Auto) 0.05 K/uL Eosinophils # (Auto) 0.01 K/uL Basophils # (Auto) 0.01 K/uL Assessment & Plan Assessment: POD #1, Left TKA Plan: PT/ OT DVT proph- ASA D/C planning- Home w OPPT As per medicine. Inhouse Planning Pain Management: Celebrex, Ultram, Morphine, PO Tylenol, Oxy IR DVT Prophylaxis: TEDs, SCDs, ASA Discharge Planning Discharge Planning: home with oppt Pain Management: Celebrex, PO Tylenol, Oxy IR DVT Prophylaxis: TEDs, ASA Therapy: Physical Therapy, Occupational Therapy
[2017-03-19 10:51] VITALS: BP 148/73; PULSE 77; TEMP 36.6; O2SAT 100
[2017-03-19 15:11] VITALS: BP 132/68; PULSE 71; TEMP 36.9; O2SAT 94
[2017-03-19 22:45] VITALS: BP 119/64; PULSE 63; TEMP 36.7; O2SAT 98
[2017-03-20] MEDS: ACETAMINOPHEN 500 MG TAB PO SCH ×2 (05:26→13:50)
[2017-03-20 06:08] LABS: HEMATOCRIT 32.8 % (42-52); MEAN CELL VOLUME 88.6 fL (80-100); MEAN CORPUSCULAR HGB CONC 33.8 g/dl (32-36); MEAN PLATELET VOLUME 10.9 fL (7.4-10.4); PLATELET COUNT 236 K/uL (130-400); WHITE BLOOD COUNT 8.51 K/uL (4.8-10.8)
[2017-03-20 06:41] LABS: CREATININE 1.1 mg/dl (0.60-1.40)
[2017-03-20 06:42] LABS: CALCIUM 8.2 mg/dl (8.5-10.1); POTASSIUM 4.4 mmol/L (3.5-5.1)
[2017-03-20 07:22] VITALS: BP 133/75; PULSE 72; TEMP 37.1; O2SAT 91
--- NOTE | 2017-03-20 08:00 | Hospitalist Progress Note ---
Hospitalist Progress Note Date of Service Mar 20, 2017. Subjective Pt evaluation today including: conversation w/ patient, physical exam, chart review, lab review, review of inpatient medication list Pain: None PO Intake: Tolerating PO diet Voiding: no voiding problems Patient reports feeling well. He did have an episode of dizziness and sweating this morning. He states that he had been bent over and straining and then quickly changed to standing position when he then felt dizzy and sweaty. This made him somewhat anxious and short of breath. He sat down and his symptoms immediately began to resolve. He also reports passing a lot of gas which also helped to further relieve his symptoms. These symptoms have now completely resolved. He denied any changes in vision, chest pain, nausea, vomiting, numbness or tingling during this episode. He reports that his knee is "feeling great." He is eating and urinating without difficulties. He has not had a bowel movement yet. The patient denies fevers, chills, chest pain, palpitations , claudication, cough, wheezing, nausea, vomiting, abdominal pain, dysuria, hematuria, urinary retention, paralysis, weakness, numbness and tingling. Additional Comments: See HPI for pertinent positives and negatives. All other systems reviewed and negative. Objective Vital Signs Date Time Temp Pulse Resp B/P (MAP) Pulse Ox O2 Delivery O2 Flow Rate FiO2 03/20/17 07:22 37.1 72 18 133/75 (94) 91 Room Air 03/19/17 23:45 Room Air 03/19/17 22:45 36.7 63 18 119/64 (82) 98 Room Air 03/19/17 15:32 Room Air 03/19/17 15:11 36.9 71 14 132/68 (89) 94 Room Air 03/19/17 10:51 36.6 77 16 148/73 (98) 100 Room Air 03/19/17 08:30 Room Air Physical Exam Notes: General appearance: Well-developed, well-nourished, no apparent distress Head: +Head bobbing. Pt states he has had this "involuntary twitch" since he was a teenager. Normocephalic, atraumatic Eyes: Normal inspection, PERRL, EOMI ENT: Normal ENT inspection, hearing grossly normal, pharynx normal Neck: Supple, no JVD, trachea midline Respiratory/Chest: Lungs clear to auscultation, normal breath sounds, no respiratory distress Cardiovascular: Regular rate & rhythm, no gallop, no murmur Abdomen/GI: Normal bowel sounds, non-tender, soft Extremities/Musculoskeletal: Normal inspection, no calf tenderness, no pedal edema Neurological/Psych: Alert, normal mood/affect, oriented x 3 Skin: Normal color, warm/dry, no rash Laboratory Results Last 24 Hours Test 03/19/17 08:03 03/19/17 12:00 03/19/17 16:50 03/19/17 20:30 Bedside Glucose 103 mg/dl 100 mg/dl 101 mg/dl 125 mg/dl Test 03/20/17 05:15 03/20/17 05:25 Sodium Level 143 mmol/L Potassium Level 4.4 mmol/L Chloride Level 108 mmol/L Carbon Dioxide Level 29 mmol/L Anion Gap 6.0 mmol/L Blood Urea Nitrogen 19 mg/dl Creatinine 1.10 mg/dl Est Creatinine Clear Calc Drug Dose 71.8 ml/min Estimated GFR () 79.5 Estimated GFR (Non- 68.6 BUN/Creatinine Ratio 17.0 Random Glucose 94 mg/dl Calcium Level 8.2 mg/dl White Blood Count 8.51 K/uL Red Blood Count 3.70 M/uL Hemoglobin 11.1 g/dL Hematocrit 32.8 % Mean Corpuscular Volume 88.6 fL Mean Corpuscular Hemoglobin 30.0 pg Mean Corpuscular Hemoglobin Concent 33.8 g/dl RDW Standard Deviation 47.5 fL RDW Coefficient of Variation 14.6 % Platelet Count 236 K/uL Mean Platelet Volume 10.9 fL Assessment and Plan 66 y/o male with a history of HLD and Hayes's esophagus who presents s/p left TKA with Dr. Pineda on 03/18 for medical management. -Pain management, DVT prophylaxis, and PT/OT as per primary team -POD #2 Pre-diabetes--pre op labs on 02/12/17 show HgbA1c of 6.4 -Insulin sliding scale -Check BSGs q ac and qhs -Discussed with patient lifestyle modifications for after discharge and to follow up on this with his PCP, repeat HgbA1c in 3 months HLD -Continue atorvastatin 40 mg PO qd Hayes's esophagus -Continue pantoprazole 40 mg PO qd Code Status -Level I, FULL RESUSCITATION STATUS Pt. is stable from a medical standpoint, we will sign off. Clear for discharge as per primary team.
--- NOTE | 2017-03-20 08:16 | Orthopedic Progress Note ---
Orthopedic Progress Note Date of Service Mar 20, 2017. Subjective Post OP Day: 2 Reports: feeling well, pain controlled w PO medications, Denies: complaints, chest pain, SOB, nausea / vomiting, light headedness, calf pain Objective calves soft nontender, N/V intact, capillary refill less than 2 sec., dressing C /D/I, A&O x3, toes mobile silverlon in tact. Date Time Temp Pulse Resp B/P (MAP) Pulse Ox O2 Delivery O2 Flow Rate FiO2 03/20/17 07:22 37.1 72 18 133/75 (94) 91 Room Air 03/19/17 23:45 Room Air 03/19/17 22:45 36.7 63 18 119/64 (82) 98 Room Air 03/19/17 15:32 Room Air 03/19/17 15:11 36.9 71 14 132/68 (89) 94 Room Air 03/19/17 10:51 36.6 77 16 148/73 (98) 100 Room Air 03/19/17 08:30 Room Air Laboratory Results 24 Hours: Test 03/20/17 05:25 Hematocrit 32.8 % Hemoglobin 11.1 g/dL Assessment & Plan Assessment: POD #2, Left TKA Plan: PT/ OT DVT proph- ASA D/C planning- Home w OPPT today. As per medicine. Inhouse Planning Pain Management: Celebrex, Ultram, Morphine, PO Tylenol, Oxy IR DVT Prophylaxis: TEDs, SCDs, ASA Discharge Planning Discharge Planning: home with oppt Pain Management: Celebrex, PO Tylenol, Oxy IR DVT Prophylaxis: TEDs, ASA Therapy: Physical Therapy, Occupational Therapy
[2017-03-20] MEDS ORDERED: ONDA8TAB6 PO (08:20)
[2017-03-20] MEDS ORDERED: ASPEC81 PO (08:20)
[2017-03-20] MEDS ORDERED: CLB200 PO (08:20)
[2017-03-20] MEDS ORDERED: RXC5 PO (08:20)
--- NOTE | 2017-03-20 08:23 | Discharge Instructions ---
Discharge Instructions Date of Service Mar 20, 2017. Admission Reason for Admission: Left Knee Degenerative Joint Disease Discharge Discharge Diagnosis / Problem: Left TKA Discharge Goals Goal(s): Improve function Activity Recommendations Activity Limitations: as noted below . Instructions / Follow-Up Instructions / Follow-Up ACTIVITY RECOMMENDATIONS: SELF CARE INSTRUCTIONS AFTER TOTAL KNEE REPLACEMENT A. You may need to continue a physical therapy program after discharge from the hospital. There are several options available to you. Your doctor will assist you in selecting the best one for you. 1. An out-patient facility 2 to 3 times a week for therapy or home therapy. 2. Continue working on all exercises taught to you in the hospital. Your goals should be to increase bending of your knee to 90 degrees and beyond and to fully straighten your knee. B. You may progress at your own pace from walking with a walker or crutches to a cane; then to no assistive devices. C. Make walking a part of your daily routine. Be up as much as comfortable with rest periods throughout the day. Rest with leg elevation is very important. Use the ice wrap frequently for the first 3-4 weeks. D. There are no restrictions on activities. You may ride in a car, shop, participate in tubing drier and all social activities. E. Wear the long elastic stockings (MELISSA hose) 20 hours a day for 2 weeks after surgery. They can be removed several times a day for laundering and for a bath. F. You may shower, no tub baths until cleared by your doctor. SPECIAL CARE INSTRUCTIONS: VERY IMPORTANT TO READ AND REVIEW A. There are a few signs you need to watch for after you are home. Call [facility] if you notice any of the followin. Increased severe knee pain. Some pain is expected especially when you exercise. 2. Increased swelling in your leg or knee; pain or swelling of the calf muscle in either lower leg. 3. Any fluid drainage from the incision. 4. Shortness of breath or chest pain. B. Please call [facility] at if you have any concerns or questions about your operation or recovery. The doctor or his nurse will return your call promptly. C. You must take antibiotics before dental work, bladder, bowel or other surgery. Your doctor will provide you with a permanent care to carry describing this precaution. IMPORTANT: * REMEMBER TO TAKE ASPIRIN, 81 MG, TWICE DAILY FOR 4 WEEKS UNLESS OTHERWISE DIRECTED. THIS IS YOUR BLOOD THINNER. * HIGH RISK PATIENTS MAY BE PRESCRIBED A STRONGER BLOOD THINNER. THIS WILL BE PROVIDED AT DISCHARGE. * CALL IF INCREASED PAIN, REDNESS, DRAINAGE OR FEVER GREATER THAT 101. * WEAR MELISSA HOSE 20 HOURS PER DAY FOR 2 WEEKS. * YOU MAY HAVE A LARGE BAND-AID LIKE DRESSING (SILVERON). THIS WILL REMAIN ON YOUR INCISION FOR 7 DAYS, THEN CAN BE REMOVED. IF INCISION IS LEAKING THROUGH DRESSING, CALL THE OFFICE . FOLLOW UP VISIT: If appointment is not already scheduled: Please call [facility] to make a follow-up appointment for 2 weeks after your surgery at . Current Hospital Diet Patient's current hospital diet: Diabetes Type 2 Diet Discharge Diet Recommended Diet: Diabetes Type 2 Diet Procedures Procedures Performed: Left total knee arthroplasty Pending Studies Studies pending at discharge: no Laboratory Results Hemoglobin A1c Test 02/12/17 14:35 Range/Units Estimated Average Glucose 137 mg/dl Hemoglobin A1c 6.4 H 4.5-5.6 % Medical Emergencies . Who to Call and When: Medical Emergencies: If at any time you feel your situation is an emergency, please call 911 immediately. . Non-Emergent Contact Non-Emergency issues call your: Primary Care Provider . "Provider Documentation" section prepared by Dontrell Hatch. . VTE Core Measure Inpt VTE Proph given/why not?: Other Anticoagulation (asa), T.E.D. Stockings, SCD's [place] Drug Monitoring Program Search Results: patient reviewed within database, no issues identified
[2017-03-20] MEDS: CeleBREX 200 MG CAP PO SCH (08:46)
[2017-03-20] MEDS: ATORVASTATIN 20 MG TAB PO SCH (08:47)
[2017-03-20] MEDS: DOCUSATE SODIUM 100 MG CAP PO SCH (08:47)
[2017-03-20] MEDS: ASPIRIN 81 MG ECTAB PO SCH (08:47)
[2017-03-20] MEDS: PANTOprazole SOD 40 MG TAB PO SCH (08:48)
[2017-03-20] MEDS: MULTIVITAMIN TAB PO SCH (08:48)
[2017-03-20] MEDS: ASCORBIC ACID 500 MG TAB PO SCH (08:49)
[2017-03-20] MEDS: INSULIN ASPART 100 UNITS/ML 3 ML PEN SC SCH ×2 (08:50→12:00)
[2017-03-20] MEDS: OXYCODONE HCL IR 5 MG TAB (IMMEDIATE RELEASE) PO PRN ×2 (08:55→13:57)
[2017-03-20 09:55] VITALS: BP 72/42
[2017-03-20 09:59] VITALS: BP 118/73
[2017-03-20 13:39] VITALS: BP 118/73; PULSE 72; TEMP 37.1; O2SAT 91
--- NOTE | 2017-03-25 07:47 | EDITING REQUIRED CODING QUERY ---
SUPPORTING DIAGNOSIS NEEDED A supporting diagnosis is required for the test/procedure performed on this patient in order for us to be reimbursed by the patient's insurance. Please provide a supporting diagnosis for the following test/procedure listed below next to the test name along with your signature. *If there is no additional diagnosis for this patient that would support the following test/procedure please document that below next to the test/procedure. Test(s)/Procedure(s) that require a supporting diagnosis: * HEMOGLOBIN A1C DIAGNOSIS:preop total joint replacement ,assess for diabetes Provider Signature: Date: Thank you Inna Kimble [employer] Information Management Once completed, please kindly fax back to [phone] For questions please call [phone]
--- NOTE | 2017-03-30 21:33 | DISCHARGE SUMMARY ---
HISTORY OF PRESENT ILLNESS: This is a 66-year-old male patient of Dr. Pineda's complaining of chronic left knee pain, longstanding, now progressively getting worse. The patient has failed conservative treatment and has elected to proceed with a left total knee arthroplasty. PAST MEDICAL HISTORY: Hypercholesterolemia, rheumatoid arthritis, acid reflux and hiatal hernia. POSTOPERATIVE COURSE: The patient underwent a left total knee arthroplasty on 03/18/2017. He was followed closely with physical therapy, DVT prophylaxis in the form of aspirin, pain medication and medical consultation. The patient did well postoperatively with no problems. He was discharged home with home health services on postoperative day #2. PHYSICAL EXAMINATION: EXTREMITIES: The left knee Silverlon dressing was clean, dry and intact. There was no redness or drainage, had no calf tenderness. Negative Homans sign. Neurologically and neurovascularly, he is intact in his left lower extremity. DIAGNOSIS: Status post left total knee arthroplasty with a history of hypercholesterolemia, rheumatoid arthritis, acid reflux and hiatal hernia. PLAN: The patient was discharged home with home health services. He will continue his preadmission medications with the addition of pain medications. Continue on aspirin twice daily for DVT prophylaxis and follow up with Dr. Pineda as scheduled as an outpatient.
[2017-06-01] MEDS ORDERED: ASPI81TA28 PO (11:20)
[2017-06-10] MEDS ORDERED: PHEN-775 PO (16:20)
[2017-06-10] MEDS ORDERED: DTR/5 PO (16:20)
[2017-06-10] MEDS ORDERED: OXYC7.5T62 PO (16:20)
[2017-06-10] MEDS ORDERED: CEPH500C2 PO (16:20)
[2017-07-06] MEDS ORDERED: CEPH-571 PO (11:03)
[2017-07-06] MEDS ORDERED: HYDR-3983 PO (11:03)
[2017-07-06] MEDS ORDERED: PHEN-775 PO (11:03)
[2017-07-06] MEDS ORDERED: TAMS0.4C38 PO (13:03)
== END 2017-03-20 14:28 | disposition home or self-care (01) | DRG 470 ==
LOC: C.ACU 05:19 → C.3E 07:00 → ENRESERV 10:06
PROVIDERS: ADMIT Orthopaedic Surgery Sports Medicine; ATTEND Orthopaedic Surgery Sports Medicine
PROC: 0SRD0J9 Replacement of Left Knee Joint with Synthetic Substitute, Cemented, Open Approach (ICD-10-PCS; principal; 2017-03-18 07:15)
DX: M17.12 Unilateral primary osteoarthritis, left knee (principal); E78.00 Pure hypercholesterolemia, unspecified; K21.9 Gastro-esophageal reflux disease without esophagitis; Z87.891 Personal history of nicotine dependence

== ENCOUNTER → 2017-05-31 | Outpatient (CLI) | payer OTHER, MEDICARE ==
[~2017-05-31] MED LIST changes: +ASPEC81 PO; +CEPH-571 PO; +CEPH500C2 PO; +CLB200 PO; +CRANPOW PO; +HYDR-3983 PO; -OMEGCAP2 PO; +ONDA8TAB6 PO; +OXYB5TAB74 PO; +OXYC7.5T62 PO; +PHEN-775 PO; +RXC5 PO; +TAMS0.4C38 PO; +[UNRECOGNIZED DRUG - OTHER] PO; +[UNRECOGNIZED DRUG - OTHER] PO
[2017-05-31 12:46] LABS: BASO % 0.3 %; BASO ABS # 0.02 K/uL (0-0.2); COMPLETE YES; EOS % 0.4 %; HEMATOCRIT 40.7 % (42-52); IG% 0.3 %; LYMPH % 15.5 %; LYMPH ABS # 1.06 K/uL (1.2-3.4); MEAN CORPUSCULAR HEMOGLOBIN 28.6 pg (25-34); MEAN CORPUSCULAR HGB CONC 33.7 g/dl (32-36); MEAN PLATELET VOLUME 10.7 fL (7.4-10.4); MONO % 7.5 %; PLATELET COUNT 312 K/uL (130-400); RED BLOOD COUNT 4.79 M/uL (4.7-6.1); WHITE BLOOD COUNT 6.84 K/uL (4.8-10.8)
[2017-05-31 12:55] LABS: BLOOD UREA NITROGEN 15 mg/dl (7-18); BUN/CREATININE RATIO 12.2 (10-20); CALCIUM 9.6 mg/dl (8.5-10.1); CARBON DIOXIDE 27 mmol/L (21-32); CHLORIDE 105 mmol/L (98-107); GLUCOSE 102 mg/dl (70-99); POTASSIUM 4.5 mmol/L (3.5-5.1); SODIUM 139 mmol/L (136-145)
== END | disposition home or self-care (01) ==
LOC: C.LAB 11:13
PROVIDERS: ATTEND Urology
DX: R31.0 Gross hematuria (principal)

== ENCOUNTER → 2017-06-10 | Day surgery (SDC) | payer OTHER, MEDICARE ==
[2017-06-01 11:20] VITALS: BMI 28.0
[~2017-06-10] VITALS: Ht 175.3 cm; Wt 87.0 kg
[~2017-06-10] MED LIST changes: -ASPEC81 PO; +ATROPINE SULFATE 0.1 MG/ML 5ML SYR IV PRN; +BELLADONNA/OPIUM SUPP 60 MG SUPP PR ONE; +CEFAZOLIN 2000 MG/60 ML D5W IV SCH; -CLB200 PO; +EpHEDrine SULFATE INJ 50 MG/ML AMP IV PRN; +FENTANYL CITRATE INJ 50 MCG/1 ML 2 ML VIAL ONE; +FUROSEMIDE 10 MG/ML 10 ML VIAL ONE; +FUROSEMIDE 40 MG/4 ML VIAL ONE; +HYDROmorphone INJ 2 MG/ML SYR/VIAL IV PRN; +LACTATED RINGER'S 1000ML 1,000 ML IV SCH; +LIDOCAINE HCL 2% 2 ML VIAL (20MG/ML) ONE; +METHYLENE BLUE 0.5% 10 ML VIAL ONE; +MIDAZOLAM HCL 1 MG/ML 2ML VIAL ONE; +NURSING VERBAL MED ORDER ONE; -ONDA8TAB6 PO; +ONDANSETRON INJ 2 MG/ML 2 ML VIAL IV PRN; +OXYCODONE/ACETAMINOPHEN 5-325 TAB PO ONE; +PHENYLEPHRINE 100MCG/ML 5ML SYR IV PRN; +PROPOFOL IV EMULSION 10 MG/ML 20 ML VIAL IV ONE; -RXC5 PO
[2017-06-10 10:53] VITALS: BP 144/69; PULSE 92; TEMP 37; O2SAT 94; Ht 175.3 cm; Wt 87.0 kg
--- NOTE | 2017-06-10 13:28 | Discharge Instructions ---
Discharge Instructions Date of Service Jun 10, 2017. Admission Reason for Admission: Hematuria Discharge Discharge Diagnosis / Problem: Bladder Tumor Discharge Goals Goal(s): Decrease discomfort, Improve function Activity Recommendations Activity Limitations: resume your previous activity Lifting Limitations: no more than 10 pounds, gradually increase as tolerated Exercise/Sports Limitations: none May Resume Sexual Activity: when tolerated Shower/Bathe: tomorrow Driving or Machine Use: no limitations . Instructions / Follow-Up Instructions / Follow-Up Expect blood in urine. Call if any issues voiding or any problems passing urine through catheter. May have clots in urine. Monitor closely for fevers. Call if any issues or concerns. May have bladder spasms or discomfort. Shahid care instructions given at discharge by nursing. May have blue/purple coloration. Current Hospital Diet Hospital Diet(s): Regular Diet Discharge Diet Recommended Diet: Regular Diet Procedures Procedures Performed: Cysto, TURBT Pending Studies Studies pending at discharge: no Medical Emergencies . Who to Call and When: Medical Emergencies: If at any time you feel your situation is an emergency, please call 911 immediately. . Non-Emergent Contact Non-Emergency issues call your: Primary Care Provider, Urologist Call Non-Emergent contact if: you have a fever, temperature is above 101, your pain is worsening, you have any medication questions . . "Provider Documentation" section prepared by Erasto Iyer,. . VTE Core Measure Inpt VTE Proph given/why not?: Eliot Otero, SCD's
--- NOTE | 2017-06-10 16:37 | [facility] Operative Report ---
Operative Report Operative Date Jun 10, 2017. Pre-Operative Diagnosis BLADDER TUMOR, hematuria, Positive Cytology Post-Operative Diagnosis SAME Procedure(s) Performed Cysto, TURBT, Exam Under Anesthesia Surgeon Dr. Iyer Woodworking Bench Carpenter Surgeon(s) Dr. Shakeel Medina Estimated Blood Loss 40ml Findings Multiple Large bladder tumors at trigone and posterior wall. Largest midline approx 7cm. 4cm Tumor at region of right UO. 4-5 subcentimeter tumors posterior wall. Left UO easily visualized. Unaffected by tumor. Right UO unable to be identified. Tumor resection near likely location. Bimanual rectal exam negative for palpable mass or fixed pelvis. Fluids See Anes Report Specimens A. Posterior Wall Bladder Tumor B. Deep biopsy posterior wall bladder tumor base Drains 18 Fr Brown Anesthesia General Complication(s) None Disposition Recovery Room / PACU Indications Gross Hematuria with Positive Cytology and Large bladder Mass on CT. Description of Procedure Patient was consented and brought back to the operating room. Patient was placed under anesthesia and into the dorsal lithotomy position. A time out was completed. A 30degree Cystoscope was placed into the bladder and the entire bladder was examined. A large tumor burden with multiple areas of calcification at the trigone was identified. At this time, neither UO was able to be identified due to tumor mass. The resection scope was then placed with a bipolar loop and resection commenced on the midline tumor, starting at the left lateral edge. With resection of tumor to the base of the mass at the trigone, the left UO was able to be identified. Electrocautery was utilized to control bleeding. With the largest tumor resected, attention was taken to the tumor at the right trigone and region of likely location of right UO. Resection was taken down to the base of the tumor. During resection attempts to determine location of UO on right failed. Once resected attention was taken to the multiple smaller tumors of the posterior wall. The tumors were resected and the tumor beds were cauterized. The entire bladder was once again inspected. All tumor was adequately resected and irrigated. The tumor bulk was sent for pathology. The Left UO was easily visualized passing urine into the bladder. Blue dye was given IV as well as a dose of lasix IV to attempt to identify the right UO. The region also had areas of bullous edema likely secondary to tumor that limited identification of right UO. Attempts to pass a wire and catheter into an opening also failed to identify the right UO. At this point, the tumor bed' s were inspected. All bleeding was controlled. A deep resection was taken into the midline tumor bed and sent for pathology as a deep tumor section. With all bleeding controlled, the bladder was left full and the scope removed. A 18 Fr brown catheter was placed and the bladder drained. A rectal exam was completed. No tumor was palpable and the bladder/pelvis was not fixed. A belladonna and opium suppository was placed for post operative pain control. The patient was cleaned, aroused from anesthesia, and transferred to the pacu in stable condition having tolerated the procedure well with no complications. I was present and participated in all aspects of the procedure. The patient will be monitored in the PACU until transferred. Plan to follow up in 1 week for brown removal and pathology review. Will monitor urine output and renal function and follow closely for signs of obstruction especially on the right side. I attest to the content of the Intraoperative Record and any orders documented therein. Any exceptions are noted below.
--- NOTE | 2017-06-10 16:39 | Anesthesiology Progress Note ---
Anesthesia Post Op Note Date & Time Jun 10, 2017 at 16:39 Vital Signs Pain Intensity: 0 Vital Signs Past 12 Hours Date Time Temp Pulse Resp B/P (MAP) Pulse Ox O2 Delivery O2 Flow Rate FiO2 06/10/17 16:35 83 16 150/85 96 Room Air 06/10/17 16:25 82 16 151/95 100 Oxymask 10 06/10/17 16:15 81 16 150/84 100 Oxymask 10 06/10/17 16:07 36.7 90 16 152/73 99 Oxymask 10 06/10/17 10:53 37.0 92 18 144/69 (94) 94 Room Air Notes Mental Status: alert / awake / arousable, participated in evaluation Pt Amnestic to Procedure: Yes Nausea / Vomiting: adequately controlled Pain: adequately controlled Airway Patency, RR, SpO2: stable & adequate BP & HR: stable & adequate Hydration State: stable & adequate Anesthetic Complications: no major complications apparent
[2017-06-10 16:51] VITALS: BP 155/81; PULSE 82; TEMP 36.9; O2SAT 99
[2017-06-10 17:20] VITALS: BP 170/87; PULSE 95; O2SAT 96
[2017-06-10 17:55] VITALS: BP 169/81; PULSE 92; TEMP 36.9; O2SAT 95
== END | disposition home or self-care (01) ==
LOC: C.ACU 10:27
PROVIDERS: ATTEND Urology
DX: C67.4 Malignant neoplasm of posterior wall of bladder (principal); R31.9 Hematuria, unspecified

== ENCOUNTER 2017-07-06 09:54 | Day surgery (SDC) | payer OTHER, MEDICARE ==
[2017-06-17 08:44] VITALS: BMI 28.0
[~2017-07-06] VITALS: Ht 175.3 cm; Wt 81.0 kg
[~2017-07-06 09:54] MED LIST changes: -ASPI81TA28 PO; -BELLADONNA/OPIUM SUPP 60 MG SUPP PR ONE; -CEPH-571 PO; -CEPH500C2 PO; -CRANPOW PO; +FENTANYL CITRATE INJ 50 MCG/1 ML 2 ML VIAL IV PRN; -FENTANYL CITRATE INJ 50 MCG/1 ML 2 ML VIAL ONE; -FUROSEMIDE 10 MG/ML 10 ML VIAL ONE; -FUROSEMIDE 40 MG/4 ML VIAL ONE; -HYDR-3983 PO; -HYDROmorphone INJ 2 MG/ML SYR/VIAL IV PRN; -LACTATED RINGER'S 1000ML 1,000 ML IV SCH; -LIDOCAINE HCL 2% 2 ML VIAL (20MG/ML) ONE; -METHYLENE BLUE 0.5% 10 ML VIAL ONE; -MIDAZOLAM HCL 1 MG/ML 2ML VIAL ONE; -NURSING VERBAL MED ORDER ONE; -OXYB5TAB74 PO; -OXYC7.5T62 PO; -OXYCODONE/ACETAMINOPHEN 5-325 TAB PO ONE; -PHEN-775 PO; -PHENYLEPHRINE 100MCG/ML 5ML SYR IV PRN; -PROPOFOL IV EMULSION 10 MG/ML 20 ML VIAL IV ONE; -TAMS0.4C38 PO; -[UNRECOGNIZED DRUG - OTHER] PO; -[UNRECOGNIZED DRUG - OTHER] PO
[2017-07-06] MEDS ORDERED: LIDOCAINE HCL 2% 2 ML VIAL (20MG/ML) ONE (09:59)
[2017-07-06] MEDS ORDERED: PROPOFOL IV EMULSION 10 MG/ML 20 ML VIAL IV ONE (09:59)
[2017-07-06] MEDS ORDERED: ONDANSETRON INJ 2 MG/ML 2 ML VIAL ONE (09:59)
[2017-07-06] MEDS ORDERED: FENTANYL CITRATE INJ 50 MCG/1 ML 2 ML VIAL ONE (09:59)
[2017-07-06] MEDS ORDERED: DEXAMETHASONE SOD INJ 4 MG/ML VIAL ONE (09:59)
[2017-07-06] MEDS ORDERED: MIDAZOLAM HCL 1 MG/ML 2ML VIAL ONE (09:59)
[2017-07-06] MEDS ORDERED: CRANPOW PO (10:16)
[2017-07-06] MEDS ORDERED: [UNRECOGNIZED DRUG - OTHER] PO (10:16)
[2017-07-06] MEDS ORDERED: [UNRECOGNIZED DRUG - OTHER] PO (10:16)
[2017-07-06 10:20] VITALS: BP 122/76; PULSE 73; TEMP 36.6; O2SAT 97; Ht 175.3 cm; Wt 81.0 kg
[2017-07-06] MEDS ORDERED: LACTATED RINGER'S 1000ML 1,000 ML IV SCH (10:45)
[2017-07-06] MEDS ORDERED: HYDR-3983 PO (11:03)
[2017-07-06] MEDS ORDERED: CEPH-571 PO (11:03)
[2017-07-06] MEDS ORDERED: PHEN-775 PO (11:03)
--- NOTE | 2017-07-06 11:05 | Discharge Instructions ---
Discharge Instructions Date of Service Jul 06, 2017. Admission Reason for Admission: Hematuria Discharge Discharge Diagnosis / Problem: Bladder Cancer Discharge Goals Goal(s): Decrease discomfort, Improve function Activity Recommendations Activity Limitations: resume your previous activity Lifting Limitations: no more than 25 pounds Shower/Bathe: no limitations . Instructions / Follow-Up Instructions / Follow-Up May have blood in urine. May have pelvic discomfort or pain. Monitor for worsening pain or fever. Call with any issues. Discharge Diet Recommended Diet: Regular Diet Procedures Procedures Performed: Cystoscopy, TURBT, Stent placement Right Pending Studies Studies pending at discharge: no Medical Emergencies . Who to Call and When: Medical Emergencies: If at any time you feel your situation is an emergency, please call 911 immediately. . Non-Emergent Contact Non-Emergency issues call your: Primary Care Provider, Urologist Call Non-Emergent contact if: you have a fever, temperature is above 101.5, your pain is not controlled, your pain is worsening . . "Provider Documentation" section prepared by Erasto Iyer,. . VTE Core Measure Inpt VTE Proph given/why not?: Eliot Otero, SCD's
[2017-07-06] MEDS ORDERED: EpHEDrine SULFATE INJ 50 MG/ML AMP ONE (11:22)
[2017-07-06] MEDS ORDERED: METHYLENE BLUE 0.5% 10 ML VIAL ONE (11:37)
[2017-07-06] MEDS ORDERED: FUROSEMIDE 10 MG/ML 10 ML VIAL ONE (11:37)
[2017-07-06] MEDS ORDERED: CONRAY 30% 150ML BOTTLE ONE (12:03)
[2017-07-06] MEDS ORDERED: KETOROLAC TROMETHAMINE 30 MG/ML VIAL ONE (12:15)
--- NOTE | 2017-07-06 12:30 | DIAGNOSTIC IMAGING REPORT ---
RETROGRADE INCLUDES KUB CLINICAL HISTORY: RETROGRADE, BLADDER TUMOR TECHNIQUE: Image intensifier COMPARISON STUDY: 05/27/2017 FINDINGS: Image intensifier was utilized for retrograde opacification of the right ureter and right renal collecting system. Filling defects in the renal pelvis versus overlap artifact is present. This is followed by successful right ureteral stent placement. IMPRESSION: Image intensifier usage for right ureteral stent placement. The above report was generated using voice recognition software. It may contain grammatical, syntax or spelling errors. Electronically signed by: Dotnrell Mccartney M.D. 07/06/2017 12:29 PM Dictated Date/Time: 07/06/2017 12:28 PM
--- NOTE | 2017-07-06 12:52 | [facility] Operative Report ---
Operative Report Operative Date Jul 06, 2017. Pre-Operative Diagnosis Bladder Cancer Post-Operative Diagnosis Bladder Cancer Procedure(s) Performed Transurethral Resection Bladder Tumor; Right Retrograde; and stent placement Surgeon Dr. Erasto Iyer Ornamental Plasterer Helper Surgeon(s) none Estimated Blood Loss 20mL Findings Bladder base in state of healing. Right UO discovered in close proximity to previous resection site. Hydronephrotic drip with catheter placement. Moderate hydronephrosis on pyelogram. Specimens A: Tumor base Drains 6x26 Right Stent Anesthesia General Complication(s) None Disposition Recovery Room / PACU Indications Bladder Cancer with HGTa disease. For resection and bladder base resection. Description of Procedure Patient was consented and brought back to the operating room. Patient was placed under anesthesia in the supine position. Patient was prepped and draped in the regular sterile fashion. A time out was completed. A 30degree Cystoscope was placed into the bladder and the entire bladder was examined. The base of tumor was healing with moderate fibrinous tissue accumulation. The UO's were identified. Concern with position of right UO and proximity to previous resection. Tumor appeared to have been directly adjacent in the trigone. The Right was cannulized with a catheter and a retrograde pyelogram was completed. Hydronephrosis was appreciated. No obvious stricture at site of UO. A wire was then placed. With the wire in place, a 6 x 26 Double J stent was placed. It was confirmed with fluoroscopy. The bipolar resection scope was placed and resection carried out at the base of the bladder at the site of tumor resection. Deep specimens were collected and sent for pathologic analysis. The entire bladder was examined. Two small areas near right side wall were fulgurated with cautery. No masses or lesion otherwise appreciated. Moderate edema near the previous resection. Resection of the tumor base near the right UO was completed and sent with the base resection. With the resection complete, all bleeding was controlled. The scope was removed after the bladder was emptied. The patient was cleaned, aroused from anesthesia, and transferred to the pacu in stable condition having tolerated the procedure well with no complications. I was present and participated in all aspects of the procedure. The patient will be monitored in the PACU until transferred. I attest to the content of the Intraoperative Record and any orders documented therein. Any exceptions are noted below.
[2017-07-06] MEDS ORDERED: HYDROCODONE/ACETAMOPHEN 5/325MG TAB PO PRN (13:00)
[2017-07-06] MEDS ORDERED: TAMS0.4C38 PO (13:03)
[2017-07-06 13:10] VITALS: BP 140/74; PULSE 71; TEMP 36.5; O2SAT 100
--- NOTE | 2017-07-06 13:22 | Anesthesiology Progress Note ---
Anesthesia Post Op Note Date & Time Jul 06, 2017 at 13:21 Vital Signs Pain Intensity: 0 Vital Signs Past 12 Hours Date Time Temp Pulse Resp B/P (MAP) Pulse Ox O2 Delivery O2 Flow Rate FiO2 07/06/17 13:05 36.2 07/06/17 12:57 72 15 07/06/17 12:57 71 15 98 07/06/17 12:56 135/77 07/06/17 12:52 74 16 129/71 100 07/06/17 12:52 76 16 07/06/17 12:47 69 11 100 07/06/17 12:47 69 11 07/06/17 12:46 137/77 07/06/17 12:43 71 14 100 07/06/17 12:43 71 14 07/06/17 12:41 148/74 07/06/17 12:38 74 15 07/06/17 12:38 74 15 98 07/06/17 12:36 148/80 07/06/17 12:33 74 11 100 07/06/17 12:33 74 11 07/06/17 12:31 134/75 07/06/17 12:29 135/77 07/06/17 12:28 36.0 76 13 135/77 100 Oxymask 10 07/06/17 12:28 77 12 07/06/17 12:28 77 12 100 07/06/17 10:20 36.6 73 16 122/76 (91) 97 Room Air Notes Mental Status: alert / awake / arousable, participated in evaluation Pt Amnestic to Procedure: Yes Nausea / Vomiting: adequately controlled Pain: adequately controlled Airway Patency, RR, SpO2: stable & adequate BP & HR: stable & adequate Hydration State: stable & adequate Anesthetic Complications: no major complications apparent
[2017-07-06 13:40] VITALS: BP 157/74; PULSE 78; O2SAT 97
[2017-07-06 14:10] VITALS: BP 154/67; PULSE 80; TEMP 36.7; O2SAT 95
[2017-07-08] MEDS ORDERED: LACTATED RINGER'S 1000ML 1,000 ML IV SCH (06:00)
--- NOTE | 2017-07-08 12:38 | EDITING REQUIRED CODING QUERY ---
CODING CLARIFICATION Please specify below the size of the bladder resection: ( ) MINOR (less than 0.5 cm) ( ) SMALL bladder tumor[s] (0.5 up to 2.0 cm) ( X ) MEDIUM bladder tumor[s] (2.0 to 5.0 cm) ( ) LARGE bladder tumor[s] ( ) Other, please specify: Resected 3.2 cm of tissue from base of tumor bed at trigone and near the right UO. Thank you for your assistance, Massiel Mcadams - Journeyman Pipe Welder
== END 2017-07-06 14:30 | disposition home or self-care (01) ==
LOC: C.ACU 09:54
PROVIDERS: ATTEND Urology
DX: C67.9 Malignant neoplasm of bladder, unspecified (principal); K22.70 Barrett's esophagus without dysplasia; E78.00 Pure hypercholesterolemia, unspecified; Z79.82 Long term (current) use of aspirin; Z83.3 Family history of diabetes mellitus

== ENCOUNTER → 2017-08-30 | Outpatient (CLI) | payer OTHER, MEDICARE ==
[~2017-08-30] MED LIST changes: -ATOR-24 PO; -ATROPINE SULFATE 0.1 MG/ML 5ML SYR IV PRN; -CEFAZOLIN 2000 MG/60 ML D5W IV SCH; +CRANPOW PO; -EpHEDrine SULFATE INJ 50 MG/ML AMP IV PRN; -FENTANYL CITRATE INJ 50 MCG/1 ML 2 ML VIAL IV PRN; +HYDR-3983 PO; -ONDANSETRON INJ 2 MG/ML 2 ML VIAL IV PRN; +[UNRECOGNIZED DRUG - OTHER] PO; +[UNRECOGNIZED DRUG - OTHER] PO
== END | disposition home or self-care (01) ==
LOC: C.LABSPEC 14:06
PROVIDERS: ATTEND Urology
DX: R39.9 Unspecified symptoms and signs involving the genitourinary system (principal)

== ENCOUNTER → 2018-06-06 | Outpatient (CLI) | payer OTHER, MEDICARE ==
[~2018-06-06] MED LIST changes: +ACET-24 PO; -ASCO1CAP3 PO; +ASPI-461 PO; +CLB200 PO; +CPR500 PO; -CRANPOW PO; +FLM4 PO; +FRRG PO; -HYDR-3983 PO; +ONDA-170 PO; +RXC5 PO; -[UNRECOGNIZED DRUG - OTHER] PO; -[UNRECOGNIZED DRUG - OTHER] PO
== END | disposition home or self-care (01) ==
LOC: C.LABSPEC 17:06
PROVIDERS: ATTEND Urology
DX: R31.9 Hematuria, unspecified (principal)